=== PATIENT | female | born 1995 ===

== ENCOUNTER 2017-03-11 19:04 | Emergency (ER) | payer OTHER ==
[2017-03-11 19:10] VITALS: BP 115/60; PULSE 83; RESP 16; TEMP 98.1; O2SAT 100
--- NOTE | 2017-03-11 19:39 | ED PDOC ---
HPI: CCC, URI, Sore Throat Time Seen by Provider: 03/11/17 19:14 Chief Complaint (Nursing): ENT Problem Chief Complaint (Provider): ENT Problem History Per: Patient History/Exam Limitations: no limitations Onset/Duration Of Symptoms: Days (x1) Additional Complaint(s): Melba Qureshi, 21 year old female presents to the ED with right ear pain after inserting a Q-tip deeply in her right ear. She complains of pain in her right ear, drainage, and a headache. She denies fever, sore throat, or chills. PMD: None provided Past Medical History Reviewed: Historical Data, Nursing Documentation, Vital Signs Vital Signs: Last Vital Signs Temp 98.1 F 03/11/17 19:08 Pulse 83 03/11/17 19:08 Resp 16 03/11/17 19:08 BP 115/60 03/11/17 19:08 Pulse Ox 100 03/11/17 19:43 - Medical History PMH: No Chronic Diseases - Family History Family History: States: Unknown Family Hx - Social History Current smoker - smoking cessation education provided: No Ex-Smoker (has not smoked in the last 12 months): No Alcohol: None Drugs: Denies - Home Medications Home Medications: Ambulatory Orders Medication Instructions Recorded Naproxen [Naprosyn Tab] 1 tab PO Q8 PRN #21 tab 10/12/16 Amoxicillin [Amoxil 500 mg Cap] 500 mg PO BID #14 cap 03/11/17 - Allergies Allergies/Adverse Reactions: Allergies Allergy/AdvReac Type Severity Reaction Status Date / Time No Known Allergies Allergy Verified 10/12/16 18:29 Review of Systems ROS Statement: Except As Marked, All Systems Reviewed And Found Negative Constitutional: Negative for: Fever, Chills ENT: Positive for: Ear Pain (right ear pain), Ear Discharge (right ear drainage) . Negative for: Other (no sore throat ) Neurological: Positive for: Headache Physical Exam - Reviewed Nursing Documentation Reviewed: Yes Vital Signs Reviewed: Yes - Physical Exam Appears: Positive for: Well, Non-toxic, No Acute Distress Head Exam: Positive for: ATRAUMATIC, NORMAL INSPECTION, NORMOCEPHALIC ENT: Positive for: TM Is/Are (right tympanic membrane is erythematous; ), Other (cerumen present; ear canal swollen; no pinna, tragus, or mastoid tenderness; no swelling to pinna ) Neurologic/Psych: Positive for: Alert, Oriented - ECG O2 Sat by Pulse Oximetry: 100 (RA) Pulse Ox Interpretation: Normal Medical Decision Making Medical Decision Making: Impression: Right ear pain Plan: * Will give antibiotics dose Scribe Attestation: Documented by Sophie Hardy, acting as a scribe for Reba Man PA-C. Provider Scribe Attestation: All medical record entries made by the Scribe were at my direction and personally dictated by me. I have reviewed the chart and agree that the record accurately reflects my personal performance of the history, physical exam, medical decision making, and the department course for this patient. I have also personally directed, reviewed, and agree with the discharge instructions and disposition. Disposition - Clinical Impression Clinical Impression: Acute ear infection - Patient ED Disposition Is Patient to be Admitted: No Counseled Patient/Family Regarding: Need For Followup, Rx Given - Disposition Disposition: Routine/Home Disposition Time: 14:13 Condition: GOOD Prescriptions: Amoxicillin [Amoxil 500 mg Cap] 500 mg PO BID #14 cap Instructions: Otitis Media (ED)
== END 2017-03-11 19:41 | disposition home or self-care (01) ==
LOC: H.ER 19:04
DX: H92.01 Otalgia, right ear (principal)

== ENCOUNTER 2017-05-08 18:15 | Emergency (ER) | payer OTHER ==
[2017-05-08] MEDS ORDERED: Sodium Chloride 0.9% 1,000 ML IV STA (18:48)
[2017-05-08] MEDS ORDERED: DiphenhydrAMINE 50 mg/ml Inj IVP STA (18:48)
[2017-05-08] MEDS ORDERED: Alum-Mag Hydrox-Simethicone Susp (30 mL) PO STA (18:48)
[2017-05-08] MEDS ORDERED: DiphenhydrAMINE 50 mg/ml Inj ONE (19:15)
[2017-05-08] MEDS ORDERED: Alum-Mag Hydrox-Simethicone Susp (30 mL) ONE (19:16)
--- NOTE | 2017-05-08 19:30 | ED PDOC ---
HPI: General Adult Time Seen by Provider: 05/08/17 18:36 Chief Complaint (Nursing): Headache Chief Complaint (Provider): Chest pain, headache History Per: Patient History/Exam Limitations: no limitations Onset/Duration Of Symptoms: Days Have you had recent travel within the past 21 days to any of the following countries: [place], [place], [place] or [place]?: No Current Symptoms Are (Timing): Still Present Additional History Per: Patient Additional Complaint(s): The patient is a 21yo female, presents to the ED for evaluation of multiple complaints. Patient reports for the past two weeks, she has had chest pain present only when she is eating and described as a burning sensation. Patient states she feels as if the food is stuck in her chest. She denies any associated shortness of breath when resting or when active. Patient also reports 4 days ago, she developed a left-sided, atraumatic, gradual onset, temporal headache; patient reports she has had similar headache in the past but it has not lasted this long. She states she took Advil for the pain but upon visiting an Urgent Care center, was informed to stop Advil and take Prilosec; patient states she has had no relief with the medication. She reports associated light sensitivity and nausea but denies any abdominal pain, shortness of breath, palpitations, fever or head injury. Past Medical History Reviewed: Historical Data, Nursing Documentation, Vital Signs Vital Signs: Last Vital Signs Temp 98 F 05/08/17 21:49 Pulse 76 05/08/17 21:49 Resp 18 05/08/17 21:49 BP 113/63 05/08/17 21:49 Pulse Ox 100 05/08/17 21:49 - Medical History PMH: No Chronic Diseases - Surgical History Surgical History: No Surg Hx - Family History Family History: States: Unknown Family Hx - Social History Current smoker - smoking cessation education provided: No Alcohol: None Drugs: Denies - Home Medications Home Medications: Ambulatory Orders Medication Instructions Recorded Naproxen [Naprosyn Tab] 1 tab PO Q8 PRN #21 tab 10/12/16 Amoxicillin [Amoxil 500 mg Cap] 500 mg PO BID #14 cap 03/11/17 Famotidine [Pepcid] 20 mg PO DAILY PRN #30 tab 05/08/17 Metoclopramide [Reglan] 10 mg PO Q8 PRN #15 tab 05/08/17 - Allergies Allergies/Adverse Reactions: Allergies Allergy/AdvReac Type Severity Reaction Status Date / Time No Known Allergies Allergy Verified 10/12/16 18:29 Review of Systems ROS Statement: Except As Marked, All Systems Reviewed And Found Negative Constitutional: Negative for: Fever Cardiovascular: Positive for: Chest Pain. Negative for: Palpitations Respiratory: Negative for: Shortness of Breath Neurological: Positive for: Headache Physical Exam - Reviewed Nursing Documentation Reviewed: Yes Vital Signs Reviewed: Yes - Physical Exam Appears: Positive for: Non-toxic, No Acute Distress Head Exam: Positive for: ATRAUMATIC, NORMAL INSPECTION, NORMOCEPHALIC Skin: Positive for: Normal Color Eye Exam: Positive for: Normal appearance, EOMI, PERRL ENT: Positive for: Normal ENT Inspection Neck: Positive for: Normal, Supple Cardiovascular/Chest: Positive for: Regular Rate, Rhythm Respiratory: Positive for: Normal Breath Sounds. Negative for: Accessory Muscle Use, Respiratory Distress Gastrointestinal/Abdominal: Positive for: Normal Exam, Soft. Negative for: Tenderness Extremity: Positive for: Normal ROM. Negative for: Deformity, Swelling Neurologic/Psych: Positive for: Alert, Oriented. Negative for: Motor/Sensory Deficits - Laboratory Results Result Diagrams: 05/08/17 20:30 05/08/17 20:30 Urine POC: Negative - ECG ECG: Positive for: Interpreted By Me ECG Rhythm: Positive for: Sinus Rhythm. Negative for: ST/T Changes Rate: 78 O2 Sat by Pulse Oximetry: 99 (RA) Pulse Ox Interpretation: Normal - Radiology X-Ray: Interpreted by Me (cxr) X-Ray Interpretation: No Acute Disease - Progress Re-evaluation Time: 22:18 (Reports complete relief of headache and chest pain. ) Condition: Re-examined, Improved Medical Decision Making Medical Decision Making: Time: 1839 Impression: Headache, chest pain Plan: -- labs -- NS IV 1L -- Maalox 30 ml PO -- Lidocaine 2% 15 ml PO -- Reglan 10 mg PO Reassess Scribe Attestation: Documented by Cheryle Maher acting as a scribe for DINO Tiwari Provider Attestation: All medical record entries made by the Scribe were at my direction and personally dictated by me. I have reviewed the chart and agree that the record accurately reflects my personal performance of the history, physical exam, medical decision making, and the department course for this patient. I have also personally directed, reviewed, and agree with the discharge instructions and disposition. Disposition - Clinical Impression Clinical Impression: Acute headache, Dyspepsia - Patient ED Disposition Is Patient to be Admitted: No - Disposition Referrals: Yin Oh [Outside] Disposition: Routine/Home Disposition Time: 22:18 Condition: IMPROVED Additional Instructions: FOLLOW UP WITH YOUR PMD IN 2 DAYS FOR FURTHER EVALUATION. Prescriptions: Famotidine [Pepcid] 20 mg PO DAILY PRN #30 tab PRN Reason: abdominal pain Metoclopramide [Reglan] 10 mg PO Q8 PRN #15 tab PRN Reason: headache or nausea Instructions: Acute Headache (ED) Forms: [employer] Reviewed (Irish) Print Language: MOLDOVAN
[2017-05-08 21:05] LABS: BASO # 0.1 K/uL (0.0-0.2); BASO % 0.6 % (0.0-2.0); EOS # 0.2 K/uL (0.0-0.7); EOS % 2.1 % (0.0-4.0); LYMPH % 34.3 % (20.0-40.0); MEAN CELL VOLUME 91.3 fl (81.0-99.0); MEAN CORPUSCULAR HEMOGLOBIN 30.9 pg (27.0-31.0); MEAN CORPUSCULAR HGB CONC 33.8 g/dL (33.0-37.0); MEAN PLATELET VOLUME 7.5 fl (7.2-11.7); MONO # 0.8 K/uL (0.0-0.8); MONO % 9.3 % (0.0-10.0); NEUT # 4.6 K/uL (1.8-7.0); NEUT % 53.7 % (50.0-75.0); RED CELL DISTRIBUTION WIDTH 12.8 % (11.5-14.5); WHITE BLOOD COUNT 8.6 K/uL (4.8-10.8)
[2017-05-08 21:17] LABS: ALB/GLOB RATIO 1.2 (1.0-2.1); ALKALINE PHOSPHATASE 59 U/L (38-126); ALT/SGPT 42 U/L (9-52); AST/SGOT 31 U/L (14-36); BILIRUBIN,TOTAL 1.2 mg/dl (0.2-1.3); BLOOD UREA NITROGEN 7 mg/dl (7-17); CALCIUM 9.7 mg/dL (8.4-10.2); CARBON DIOXIDE 26 mmol/L (22-30); CHLORIDE 104 mmol/L (98-107); GFR AFRICAN-AMERICAN > 60; GLUCOSE,RANDOM 82 mg/dL (65-105); LIPASE 57 U/L (23-300); POTASSIUM 3.8 MMOL/L (3.6-5.0); SODIUM 143 mmol/l (132-148); TOTAL PROTEIN 8.5 G/DL (6.3-8.2)
[2017-05-08 21:49] VITALS: BP 113/63; RESP 18; TEMP 98
[2017-05-08 22:19] VITALS: PULSE 78; O2SAT 99
--- NOTE | 2017-05-09 08:44 | CARD ---
APPROVED REPORT EKG Measurement Heart [id number] <Conclusion> Normal sinus rhythm with sinus arrhythmia Normal ECG
--- NOTE | 2017-05-09 09:20 | RAD ---
HISTORY: chest pain COMPARISON: No prior. TECHNIQUE: Chest PA and lateral FINDINGS: LUNGS: No active pulmonary disease. PLEURA: No significant pleural effusion identified. No pneumothorax apparent. CARDIOVASCULAR: Normal. OSSEOUS STRUCTURES: A levoscoliotic thoracic spinal deformity. VISUALIZED UPPER ABDOMEN: Normal. OTHER FINDINGS: None. IMPRESSION: No acute cardiopulmonary disease. Scoliotic thoracic spinal deformity is identified incidentally.
== END 2017-05-08 22:21 | disposition home or self-care (01) ==
LOC: H.ER 18:15
DX: R51 Headache (principal)
CPT/HCPCS: 71020; 80053; 81025; 83690; 85025; 85651; 93005; 96374; 99285; J2765; J7040

== ENCOUNTER 2017-05-12 23:54 | Emergency (ER) | payer OTHER ==
[2017-05-12 23:58] VITALS: BP 156/70; PULSE 86; RESP 20; TEMP 98.8; O2SAT 99
[2017-05-13] MEDS ORDERED: Sodium Chloride 0.9% 1,000 ML IV STA ×2 (00:25→02:16)
--- NOTE | 2017-05-13 00:45 | ED PDOC ---
HPI: Headache Time Seen by Provider: 05/13/17 00:04 Chief Complaint (Nursing): Headache Chief Complaint (Provider): Headache History Per: Patient History/Exam Limitations: no limitations Onset/Duration Of Symptoms: Days (x5) Current Symptoms Are (Timing): Still Present Additional Complaint(s): Melba Qureshi is a 21 year old female who presents to the emergency department with a complaint of headaches that comes and goes associated with photophobia ongoing for 5 days. Denied numbness, weakness or tingling sensation. Patient stated she was seen in ED at [facility] on 05/08/17 and at [facility] earlier today for similar symptoms where a CT was done with normal findings. She also reported taking Advil without relief of symptoms. PMD: Santana Olivera MD Past Medical History Reviewed: Historical Data, Nursing Documentation, Vital Signs Vital Signs: Last Vital Signs Temp 98.8 F 05/12/17 23:55 Pulse 86 05/12/17 23:55 Resp 20 05/12/17 23:55 BP 156/70 H 05/12/17 23:55 Pulse Ox 99 05/12/17 23:55 - Family History Family History: States: Unknown Family Hx - Social History Current smoker - smoking cessation education provided: No Alcohol: None Drugs: Denies - Home Medications Home Medications: Ambulatory Orders Medication Instructions Recorded Naproxen [Naprosyn Tab] 1 tab PO Q8 PRN #21 tab 10/12/16 Amoxicillin [Amoxil 500 mg Cap] 500 mg PO BID #14 cap 03/11/17 Famotidine [Pepcid] 20 mg PO DAILY PRN #30 tab 05/08/17 Metoclopramide [Reglan] 10 mg PO Q8 PRN #15 tab 05/08/17 Cyclobenzaprine [Cyclobenzaprine 10 mg PO BID #15 tab 05/13/17 HCl] Ketorolac Tromethamine [Toradol] 10 mg PO BID #30 tab 05/13/17 - Allergies Allergies/Adverse Reactions: Allergies Allergy/AdvReac Type Severity Reaction Status Date / Time No Known Allergies Allergy Verified 10/12/16 18:29 Review of Systems ROS Statement: Except As Marked, All Systems Reviewed And Found Negative Neurological: Positive for: Headache, Other (photophobia). Negative for: Weakness, Numbness (or tingling sensation) Physical Exam - Reviewed Nursing Documentation Reviewed: Yes Vital Signs Reviewed: Yes - Physical Exam Appears: Positive for: Well (but tired appearance), Non-toxic, No Acute Distress Head Exam: Positive for: ATRAUMATIC, NORMAL INSPECTION, NORMOCEPHALIC Eye Exam: Positive for: Conjunctival injection (bilateral). Negative for: Normal appearance Cardiovascular/Chest: Negative for: Chest Non Tender Respiratory: Positive for: Normal Breath Sounds. Negative for: Crackles, Rales , Rhonchi, Wheezing, Respiratory Distress Extremity: Positive for: Normal ROM. Negative for: Tenderness, Pedal Edema, Deformity Neurologic/Psych: Positive for: Alert (x3), site manager II-XII (intact), Oriented, Gait (steady). Negative for: Motor/Sensory Deficits, Facial Droop - Laboratory Results Result Diagrams: 05/13/17 01:00 05/13/17 01:00 - ECG O2 Sat by Pulse Oximetry: 99 (RA) Pulse Ox Interpretation: Normal Medical Decision Making Medical Decision Making: Initial Impression: Migraine headache Initial Plan: * BMP * CBC * Toradol 30mg IVP * Reglan 10mg IVPB * NS 1,000ml IV per 500mls/hr Time: 0300 --Upon provider reevaluation, patient is feeling better, medically stable and requires no further treatment in the ED at this time. Patient will be discharged home. Counseling was provided and all questions were answered regarding diagnosis and need for follow up with PCP. There is agreement to discharge plan. Return if symptoms persist or worsen. Clinical Impression: Migraine Scribe Attestation: Documented by Caren Nolan, acting as a scribe for Chilo Rob MD. Provider Scribe Attestation: All medical record entries made by the Scribe were at my direction and personally dictated by me. I have reviewed the chart and agree that the record accurately reflects my personal performance of the history, physical exam, medical decision making, and the department course for this patient. I have also personally directed, reviewed, and agree with the discharge instructions and disposition. Disposition - Clinical Impression Clinical Impression: Migraine - Patient ED Disposition Is Patient to be Admitted: No Counseled Patient/Family Regarding: Studies Performed, Diagnosis, Need For Followup - Disposition Referrals: Santana Olivera MD [Family Provider] - Disposition: Routine/Home Disposition Time: 03:00 Condition: STABLE Prescriptions: Cyclobenzaprine [Cyclobenzaprine HCl] 10 mg PO BID #15 tab Ketorolac Tromethamine [Toradol] 10 mg PO BID #30 tab Instructions: Migraine Headache (ED) Forms: [x+1] (Slovenian)
[2017-05-13 01:07] LABS: BASO # 0.1 K/uL (0.0-0.2); BASO % 0.7 % (0.0-2.0); EOS # 0.2 K/uL (0.0-0.7); HEMATOCRIT 40.9 % (34.0-47.0); LYMPH # 2.4 K/uL (1.0-4.3); MEAN CELL VOLUME 91.4 fl (81.0-99.0); MEAN CORPUSCULAR HEMOGLOBIN 30.8 pg (27.0-31.0); MEAN CORPUSCULAR HGB CONC 33.7 g/dL (33.0-37.0); MEAN PLATELET VOLUME 7.8 fl (7.2-11.7); MONO # 0.7 K/uL (0.0-0.8); MONO % 8.2 % (0.0-10.0); NEUT # 5.2 K/uL (1.8-7.0); NEUT % 61.1 % (50.0-75.0); NRBC % 0.1 % (0.0-0.0); RED CELL DISTRIBUTION WIDTH 12.7 % (11.5-14.5); WHITE BLOOD COUNT 8.5 K/uL (4.8-10.8)
[2017-05-13 01:20] LABS: BLOOD UREA NITROGEN 8 mg/dl (7-17); CALCIUM 9.6 mg/dL (8.4-10.2); CARBON DIOXIDE 22 mmol/L (22-30); CHLORIDE 108 mmol/L (98-107); GFR AFRICAN-AMERICAN > 60; GLUCOSE,RANDOM 90 mg/dL (65-105); POTASSIUM 3.7 MMOL/L (3.6-5.0); SODIUM 141 mmol/l (132-148)
[2017-05-13] MEDS ORDERED: DiphenhydrAMINE 50 mg/ml Inj IVP STA (02:15)
[2017-05-13] MEDS ORDERED: Promethazine 50 MG in Sodium Chloride 0.9% 50 ML IVPB ONE (02:15)
== END 2017-05-13 03:20 | disposition home or self-care (01) ==
LOC: H.ER 23:54
DX: G43.909 Migraine, unspecified, not intractable, without status migrainosus (principal)
CPT/HCPCS: 80048; 81025; 85025; 96374; 99284; J1885; J2765; J7040